=== PATIENT | female | born 1985 ===

== ENCOUNTER 2024-02-22 13:20 | Outpatient (CLI) | payer OTHER ==
--- NOTE | 2024-02-22 23:50 | Ultrasound Report ---
PROCEDURE: Pelvic w/Transvaginal INDICATIONS: DYSMENORRHEA TECHNIQUE: Real-time scanning was performed of the pelvic organs, with image documentation. Additional endovagi nal scanning was necessary due to incomplete visualization of the adnexal and endometrial structures by transabdominal scanning. COMPARISON: None. FINDINGS: Uterus: Uterus is anteverted and normal in size at 9.1 x 3.45 4.9 cm. The myometrium is homogeneous . The endometrium measures 4 mm in combined thickness. Ovaries: The right ovary measures 2.6 x 1.0 x 1.8 cm, with a calculated ovarian volume of 2.5 cc. T he left ovary measures 2.1 x 1.5 x 1.3 cm, with a calculated ovarian volume of 2.2 cc. The ovaries h ave a normal sonographic appearance. Less than 12 follicles can be seen in each ovary. No adnexal m asses are seen. No cystic lesions measuring greater than 3 cm. Other: No pathologic free abdominal or pelvic fluid. IMPRESSION: Unremarkable sonographic evaluation of the pelvis. No acute abnormalities identified. Reviewed by: Octavio Lopez MD on 02/22/2024 11:49 PM PDT Approved by: Octavio Lopez MD on 02/22/2024 11:49 PM PDT Station ID: [id number]
== END 2024-02-22 13:21 | disposition home or self-care (01) ==
LOC: DI 13:20
PROVIDERS: ATTEND Obstetrics & Gynecology
DX: N94.6 Dysmenorrhea, unspecified (principal)